=== PATIENT | female | born 1985 | race Caucasian/White ===

== ENCOUNTER → 2016-07-07 | Outpatient (CLI) | payer OTHER ==
[~2016-07-07] VITALS: Ht 162.6 cm; Wt 100.7 kg
[~2016-07-07] MED LIST: ACYCLOVIR400 MG PO; ALEVE220 M2 PO; BIOTIN1000 MICRO PO; CALCIUM + D3 E1 EACH PO; COLLAGEN PLUS1 EACH PO; GLUCOSAMINE &1 EAC1 PO; LORTAB 5-500 T1 EACH PO; NIASPAN,SLO-N1000 MG PO; PAXIL40 MG PO; PREMARIN0.9 MG PO; PROBIOTIC1 EAC1 PO; SYNTHROID200 MCG PO; VITAMIN C1000 MG PO; VITAMIN D32000 UNI1 PO; WELLBUTRIN XL150 MG PO
== END | disposition home or self-care (01) ==
LOC: AMB 07:18
PROC: 0DBE8ZX Excision of Large Intestine, Via Natural or Artificial Opening Endoscopic, Diagnostic (ICD-10-PCS; principal; 2016-07-07)
DX: R19.7 Diarrhea, unspecified (principal); D80.2 Selective deficiency of immunoglobulin A [IgA]; E03.9 Hypothyroidism, unspecified; Z88.2 Allergy status to sulfonamides
CPT/HCPCS: 88305; J2250